=== PATIENT | female | born 1955 | race Caucasian/White ===

== ENCOUNTER 2018-06-01 01:25 | Outpatient (CLI) | payer MEDICARE, MEDICAID, SELFPAY ==
[2018-06-01 11:13] LABS: Abs Immature Grans 0.01 k/cumm (0.0-0.09); Absolute Basophil Count 0.04 k/cumm (0.0-0.2); Absolute Eosinophil Count 0.06 k/cumm (0.0-0.7); Absolute Lymphocyte Count 1.83 k/cumm (1.2-3.4); Absolute Monocyte Count 0.58 k/cumm (0.11-0.7); Absolute Neutrophil Count 3.32 k/cumm (1.2-6.7); Basophils % 0.7; HGB 12.5 g/dL (12.0-15.5); Immature Grans % 0.2; Lymphocytes % 31.3; Mean Corp. HGB Concentration 33.8 g/dL (32.0-36.0); Mean Corpuscular Hemoglobin 33.3 pg (27.0-33.0); Mean Corpuscular Volume 98.7 fL (80-95); Mean Platelet Volume 10.1 fL (8.0-11.0); Monocytes % 9.9; Neutrophils % 56.9; Platelet Count 147 x1000/uL (130-400); RBC 3.75 m/cumm (4.00-5.20); RBC Distribution Width 12.5 % (11.7-14.6); White Blood Cell Count 5.84 k/cumm (4.4-10.8)
[2018-06-01 11:20] LABS: INR 1.1 (1.0-3.5); Prothrombin Time 10.6 sec (9.3-10.8)
[2018-06-01 11:37] LABS: VALPROIC ACID 55.1 ug/mL (50-100)
[2018-06-01 11:38] LABS: Cholesterol 214 mg/dL (50-200); HDL Cholesterol 80 mg/dL (40-60); LDL CHOLESTEROL 115 mg/dL (<100); Triglyceride 88 mg/dL (30-150)
[2018-06-01 11:59] LABS: ALT 19 U/L (12-78); AST 13 U/L (15-37); Albumin 3.5 g/dL (3.4-5.0); Alkaline Phosphatase 71 U/L (46-116); Anion Gap 7.9 mmol/L (3-11); BUN 13 mg/dL (7-18); Bilirubin, Total 0.5 mg/dL (0.2-1.0); CO2 31.1 mmol/L (21.0-32.0); CREATININE 0.99 mg/dL (0.55-1.02); Calcium 9.3 mg/dL (8.5-10.1); Chloride 102 mmol/L (98-107); Estimated GFR 56.29 (mL/min/1.73m2); Glucose 151 mg/dL (70-100); Potassium 4.2 mmol/L (3.5-5.1); Sodium 141 mmol/L (136-145); TSH 1.11 uIU/mL (0.358-3.74); Total Protein 6.2 g/dL (6.4-8.2); Vitamin B12 1253 pg/mL (193-986)
[2018-06-01 12:00] LABS: Folate > 20.0 ng/mL (8.6-20.0)
== END 2018-06-01 01:45 ==
PROVIDERS: PCP Family Medicine; Visit Provider Psychiatry & Neurology Psychiatry
DX: Z79.899 Other long term (current) drug therapy (principal); Z51.81 Encounter for therapeutic drug level monitoring; F31.9 Bipolar disorder, unspecified; I48.91 Unspecified atrial fibrillation; Z79.01 Long term (current) use of anticoagulants; D75.89 Other specified diseases of blood and blood-forming organs; E03.9 Hypothyroidism, unspecified
CPT/HCPCS: 36415; 80053; 80061; 83721; 80164; 82607; 82746; 84443; 85025; 85610

== ENCOUNTER 2018-11-04 01:43 | Outpatient (CLI) | payer MEDICARE, MEDICAID, SELFPAY ==
[2018-11-04 10:57] LABS: Abs Immature Grans 0.02 k/cumm (0.0-0.09); Absolute Basophil Count 0.02 k/cumm (0.0-0.2); Absolute Lymphocyte Count 1.87 k/cumm (1.2-3.4); Absolute Neutrophil Count 2.35 k/cumm (1.2-6.7); Basophils % 0.4; Eosinophils % 2.1; HGB 12.7 g/dL (12.0-15.5); Immature Grans % 0.4; Lymphocytes % 38.5; Mean Corp. HGB Concentration 33.4 g/dL (32.0-36.0); Mean Corpuscular Hemoglobin 32.6 pg (27.0-33.0); Mean Corpuscular Volume 97.7 fL (80-95); Mean Platelet Volume 10.8 fL (8.0-11.0); Monocytes % 10.3; Neutrophils % 48.3; Platelet Count 162 x1000/uL (130-400); RBC 3.89 m/cumm (4.00-5.20); RBC Distribution Width 13.5 % (11.7-14.6); White Blood Cell Count 4.86 k/cumm (4.4-10.8)
[2018-11-04 11:20] LABS: ALT 20 U/L (12-78); AST 11 U/L (15-37); Albumin 3.5 g/dL (3.4-5.0); Alkaline Phosphatase 65 U/L (46-116); Anion Gap 6.4 mmol/L (3-11); BUN 27 mg/dL (7-18); Bilirubin, Total 0.5 mg/dL (0.2-1.0); CO2 30.6 mmol/L (21.0-32.0); CREATININE 0.69 mg/dL (0.55-1.02); Calcium 9.3 mg/dL (8.5-10.1); Chloride 104 mmol/L (98-107); Cholesterol 227 mg/dL (50-200); Glucose 90 mg/dL (70-100); HDL Cholesterol 82 mg/dL (40-60); LDL CHOLESTEROL 122 mg/dL (<100); Potassium 4.7 mmol/L (3.5-5.1); Sodium 141 mmol/L (136-145); Total Protein 6.5 g/dL (6.4-8.2); Triglyceride 39 mg/dL (30-150)
[2018-11-04 11:31] LABS: VALPROIC ACID 72.9 ug/mL (50-100)
[2018-11-04 11:42] LABS: Prothrombin Time 9.5 sec (9.3-11.0)
== END 2018-11-04 02:03 ==
PROVIDERS: PCP Family Medicine; Visit Provider Psychiatry & Neurology Psychiatry
DX: F25.9 Schizoaffective disorder, unspecified (principal); Z51.81 Encounter for therapeutic drug level monitoring; Z79.899 Other long term (current) drug therapy
CPT/HCPCS: 36415; 80053; 80061; 83721; 80164; 85025; 85610

== ENCOUNTER 2019-01-06 09:56 | Outpatient (CLI) | payer MEDICARE, MEDICAID, SELFPAY ==
[2019-01-06 13:17] LABS: ALT 21 U/L (12-78); AST 7 U/L (15-37); Albumin 3.6 g/dL (3.4-5.0); Alkaline Phosphatase 78 U/L (46-116); BUN 17 mg/dL (7-18); Bilirubin, Total 0.4 mg/dL (0.2-1.0); CREATININE 0.77 mg/dL (0.55-1.02); Calcium 9.8 mg/dL (8.5-10.1); Chloride 101 mmol/L (98-107); Glucose 83 mg/dL (70-100); Potassium 4.6 mmol/L (3.5-5.1); Sodium 140 mmol/L (136-145); TSH 0.53 uIU/mL (0.358-3.74); Total Protein 6.5 g/dL (6.4-8.2)
== END 2019-01-06 10:16 ==
PROVIDERS: PCP Family Medicine; Visit Provider Family Medicine
DX: E03.9 Hypothyroidism, unspecified (principal); K21.9 Gastro-esophageal reflux disease without esophagitis
CPT/HCPCS: 36415; 80053; 84443

== ENCOUNTER 2019-01-06 10:35 | Outpatient (REF) | payer MEDICARE, MEDICAID, SELFPAY ==
--- NOTE | 2019-01-06 10:30 | PAPFT_PTH ---
PATIENT: Lila Oliveros LOC: [facility] U#:[id number] AGE/SX: 63/F ROOM: RE01/06/[address]: Angela Levy MD : [id number] BED: DIS: 01/06/2019 SPEC #: [id number] RECD: 01/06/19 13:00 STATUS: LEIGH BURNETTE #: [id number] LILLY: 01/06/19 10:[address]: Angela Levy DEPT: [facility] Cytology RECD BY: Maricel Loco Tissues: 1 - CX/ENDOCX FOR PAP SMEARS Procedures: PAP THIN PREP/UVM Screening HPV DNA PROBE Comments: [id number]
== END 2019-01-06 10:55 ==
LOC: LBN 10:35
PROVIDERS: PCP Family Medicine; Visit Provider Family Medicine
DX: Z12.4 Encounter for screening for malignant neoplasm of cervix (principal); Z11.51 Encounter for screening for human papillomavirus (HPV)
CPT/HCPCS: 88142; 87624

== ENCOUNTER 2019-01-22 01:46 | Outpatient (CLI) | payer MEDICARE, MEDICAID, SELFPAY ==
--- NOTE | 2019-01-22 06:37 | DI.MAMMO_ITS ---
SYMPTOM/DIAGNOSIS: SCREENING, Z12.31 BILATERAL SCREENING MAMMOGRAM: Mammograms were interpreted according to the usual protocol including computer analysis with CAD system, tomosynthesis and C view imaging. Comparison is made with exams from 2014 through 2018. The breasts are composed of extremely dense fibroglandular tissue, breast density category D. No suspicious masses or suspicious microcalcifications are seen. There has been no significant change . IMPRESSION: : Category 1, negative mammogram. Yearly screening mammography is recommended. Breast density category D. SA ASSESSMENT OF FINDINGS: Negative. Category 1. Patient will receive a letter notifying them of these results. BI-RADS category D. The breasts are extremely dense, which lowers the sensitivity of mammography.
== END 2019-01-22 02:06 ==
PROVIDERS: Visit Provider Family Medicine
DX: Z12.31 Encounter for screening mammogram for malignant neoplasm of breast (principal)
CPT/HCPCS: 77063; 77067

== ENCOUNTER 2019-04-30 00:55 | Outpatient (CLI) | payer MEDICARE, BC, SELFPAY ==
[2019-04-30 11:02] LABS: Abs Immature Grans 0.01 k/cumm (0.0-0.09); Absolute Basophil Count 0.03 k/cumm (0.0-0.2); Absolute Eosinophil Count 0.11 k/cumm (0.0-0.7); Absolute Lymphocyte Count 1.76 k/cumm (1.2-3.4); Absolute Monocyte Count 0.47 k/cumm (0.11-0.7); Absolute Neutrophil Count 2.21 k/cumm (1.2-6.7); Basophils % 0.7; Eosinophils % 2.4; HCT 37.3 % (36.0-46.0); HGB 12.5 g/dL (12.0-15.5); Immature Grans % 0.2; Lymphocytes % 38.3; Mean Corp. HGB Concentration 33.5 g/dL (32.0-36.0); Mean Corpuscular Hemoglobin 32.4 pg (27.0-33.0); Mean Corpuscular Volume 96.6 fL (80-95); Mean Platelet Volume 10.5 fL (8.0-11.0); Monocytes % 10.2; Neutrophils % 48.2; Platelet Count 178 x1000/uL (130-400); RBC 3.86 m/cumm (4.00-5.20); RBC Distribution Width 13.3 % (11.7-14.6); White Blood Cell Count 4.59 k/cumm (4.4-10.8)
[2019-04-30 11:14] LABS: ALT 24 U/L (14-59); BUN 15 mg/dL (7-18); Bilirubin, Total 0.8 mg/dL (0.2-1.0); Glucose 84 mg/dL (70-100); Sodium 141 mmol/L (136-145)
[2019-04-30 11:16] LABS: AST 10 U/L (15-37); Albumin 3.6 g/dL (3.4-5.0); Alkaline Phosphatase 69 U/L (46-116); Anion Gap 8.8 mmol/L (3-11); CO2 29.2 mmol/L (21.0-32.0); CREATININE 0.82 mg/dL (0.55-1.02); Calcium 9.3 mg/dL (8.5-10.1); Chloride 103 mmol/L (98-107); Potassium 4.1 mmol/L (3.5-5.1); TSH 0.73 uIU/mL (0.36-3.74); Total Protein 6.8 g/dL (6.4-8.2)
[2019-04-30 11:38] LABS: VALPROIC ACID 71.5 ug/mL (50-100)
== END 2019-04-30 01:15 ==
PROVIDERS: Psychiatry & Neurology Psychiatry; PCP Family Medicine; Visit Provider Family Medicine
DX: F25.9 Schizoaffective disorder, unspecified (principal); Z79.899 Other long term (current) drug therapy
CPT/HCPCS: 36415; 80053; 80164; 84443; 85025

== ENCOUNTER 2019-12-01 02:56 | Outpatient (CLI) | payer MEDICARE, BC, SELFPAY ==
[2019-12-01 09:14] LABS: Abs Immature Grans 0.02 k/cumm (0.0-0.09); Absolute Basophil Count 0.04 k/cumm (0.0-0.2); Absolute Eosinophil Count 0.11 k/cumm (0.0-0.7); Absolute Lymphocyte Count 2.51 k/cumm (1.2-3.4); Absolute Monocyte Count 0.69 k/cumm (0.11-0.7); Absolute Neutrophil Count 2.87 k/cumm (1.2-6.7); Basophils % 0.6; Eosinophils % 1.8; HCT 38.7 % (36.0-46.0); Immature Grans % 0.3 %; Lymphocytes % 40.2; Mean Corp. HGB Concentration 33.6 g/dL (32.0-36.0); Mean Corpuscular Hemoglobin 32.3 pg (27.0-33.0); Mean Platelet Volume 9.7 fL (8.0-11.0); Monocytes % 11.1; Platelet Count 195 x1000/uL (130-400); RBC 4.03 m/cumm (4.00-5.20); White Blood Cell Count 6.24 k/cumm (4.4-10.8)
[2019-12-01 10:08] LABS: ALT 39 U/L (14-59); AST 22 U/L (15-37); Albumin 3.8 g/dL (3.4-5.0); Alkaline Phosphatase 87 U/L (46-116); Anion Gap 2.5 mmol/L (3-11); BUN 21 mg/dL (7-18); Bilirubin, Total 0.7 mg/dL (0.2-1.0); CO2 33.5 mmol/L (21.0-32.0); CREATININE 0.96 mg/dL (0.55-1.02); Calcium 9.3 mg/dL (8.5-10.1); Calculated LDL 126 mg/dL (<100); Chloride 102 mmol/L (98-107); Cholesterol 239 mg/dL (<200); Estimated GFR 58.15 (mL/min/1.73m2); Glucose 96 mg/dL (74-106); HDL Cholesterol 107 mg/dL (40-60); Potassium 4.6 mmol/L (3.5-5.1); Sodium 138 mmol/L (136-145); TSH 0.84 uIU/mL (0.36-3.74); Total Protein 6.9 g/dL (6.4-8.2); Triglyceride 34 mg/dL (<150)
== END 2019-12-01 03:16 ==
PROVIDERS: PCP Family Medicine; Visit Provider Psychiatry & Neurology Psychiatry
DX: F25.9 Schizoaffective disorder, unspecified (principal); E03.9 Hypothyroidism, unspecified; Z51.81 Encounter for therapeutic drug level monitoring; Z79.899 Other long term (current) drug therapy
CPT/HCPCS: 36415; 80053; 80061; 80164; 84443; 85025

== ENCOUNTER 2020-01-14 03:46 | Outpatient (CLI) | payer MEDICARE, BC, SELFPAY ==
--- NOTE | 2020-01-14 06:30 | DI.MAMMO_ITS ---
EXAM: MG MAMMO SCREENING CLINICAL HISTORY: screening,Z12.39 TECHNIQUE: Mammograms were interpreted according to the usual protocol including computer analysis w [employer] system, tomosynthesis and C-view imaging. COMPARISON: FINDINGS: The breasts are very dense. No dominant mass or clumped microcalcification identified in either [address]. Typical benign ductal calcifications are noted bilaterally. Examination is compared with previo us examinations including December 2018 and there has been no apparent interval change since the prior st udies. IMPRESSION: No specific evidence of malignancy at this time. Routine screening examinations are suggested yearly intervals in this age group according to the ACS ACR guidelines. BI-RADS Category 1 - Negative Breast Density - Category D - Extremely dense
== END 2020-01-14 04:06 ==
PROVIDERS: PCP Family Medicine; Visit Provider Family Medicine
DX: Z12.31 Encounter for screening mammogram for malignant neoplasm of breast (principal)
CPT/HCPCS: 77063; 77067

== ENCOUNTER → 2020-03-10 09:15 | Outpatient (BNVA) | payer MEDICARE, BC, SELFPAY | PROVIDERS: PCP Family Medicine; Referring Provider Family Medicine; Visit Provider Physical Therapy Assistant | DX: Z12.11 Encounter for screening for malignant neoplasm of colon (principal); Z80.0 Family history of malignant neoplasm of digestive organs ==

== ENCOUNTER 2020-06-16 02:14 | Outpatient (CLI) | payer MEDICARE, BC, SELFPAY ==
[2020-06-16 10:19] LABS: HCT 37.1 % (36.0-46.0); HGB 12.4 g/dL (11.2-15.7); MCH 32.2 pg (27.0-33.0); MCHC 33.4 % (32.0-36.0); MCV 96.4 fL (80-95); Platelet Count 184 10^3/uL (130-400); RBC 3.85 10^6/uL (3.93-5.22); RDW 12.7 % (11.7-14.6); RDW-SD 45.2 fL; WBC 6.29 10^3/uL (4.4-10.8)
[2020-06-16 10:28] LABS: VALPROIC ACID 56.7 ug/mL (50-100)
[2020-06-16 10:42] LABS: ALT 24 U/L (14-59); AST 14 U/L (15-37); Albumin 3.6 g/dL (3.4-5.0); Alkaline Phosphatase 82 U/L (46-116); Anion Gap 4.6 mmol/L (3-11); BUN 18 mg/dL (7-18); Bilirubin, Direct 0.15 mg/dL (0.00-0.20); Bilirubin, Total 0.6 mg/dL (0.2-1.0); CO2 31.4 mmol/L (21.0-32.0); CREATININE 0.91 mg/dL (0.55-1.02); Calcium 9.2 mg/dL (8.5-10.1); Chloride 103 mmol/L (98-107); Glucose 115 mg/dL (74-106); Potassium 4.1 mmol/L (3.5-5.1); Sodium 139 mmol/L (136-145); Total Protein 6.4 g/dL (6.4-8.2)
== END 2020-06-16 02:34 ==
PROVIDERS: PCP Family Medicine; Visit Provider Psychiatry & Neurology Psychiatry
DX: F31.9 Bipolar disorder, unspecified (principal); Z79.899 Other long term (current) drug therapy; Z51.81 Encounter for therapeutic drug level monitoring
CPT/HCPCS: 36415; 80048; 80076; 85027; 80164

== ENCOUNTER 2020-12-22 02:38 | Outpatient (CLI) | payer MEDICARE, BC, SELFPAY ==
[2020-12-22 08:25] LABS: Abs Immature Grans 0.03 10^3/uL (0.0-0.06); Absolute Basophil Count 0.06 10^3/uL (0.0-0.2); Absolute Eosinophil Count 0.09 10^3/uL (0.0-0.7); Absolute Neutrophil Count 3.44 10^3/uL (1.2-6.7); Basophils % 0.9; Eosinophils % 1.4; HCT 38.5 % (36.0-46.0); HGB 12.8 g/dL (11.2-15.7); Immature Grans % 0.5; Lymphocytes % 33.7; MCH 31.8 pg (27.0-33.0); MCHC 33.2 % (32.0-36.0); MCV 95.8 fL (80-95); MPV 9.6 fL (8.0-11.0); Monocytes % 10.7; Neutrophils % 52.8; Nucleated RBC 0 %; Platelet Count 170 10^3/uL (130-400); RBC 4.02 10^6/uL (3.93-5.22); RDW 13.2 % (11.7-14.6); RDW-SD 47.2 fL; WBC 6.52 10^3/uL (4.4-10.8)
[2020-12-22 08:34] LABS: Prothrombin Time 10.3 sec (9.3-11.0)
[2020-12-22 08:39] LABS: VALPROIC ACID 62.5 ug/mL (50-100)
[2020-12-22 09:54] LABS: ALT 27 U/L (14-59); AST 15 U/L (15-37); Albumin 3.6 g/dL (3.4-5.0); Alkaline Phosphatase 78 U/L (46-116); Anion Gap 6.2 mmol/L (3-11); BUN 18 mg/dL (7-18); Bilirubin, Total 0.7 mg/dL (0.2-1.0); CO2 31.8 mmol/L (21.0-32.0); CREATININE 0.8 mg/dL (0.55-1.02); Calcium 9.1 mg/dL (8.5-10.1); Calculated LDL 108 mg/dL (<100); Chloride 104 mmol/L (98-107); Cholesterol 207 mg/dL (<200); Glucose 93 mg/dL (74-106); HDL Cholesterol 93 mg/dL (40-60); Potassium 4.8 mmol/L (3.5-5.1); Sodium 142 mmol/L (136-145); Total Protein 6.5 g/dL (6.4-8.2); Triglyceride 32 mg/dL (<150)
== END 2020-12-22 02:39 | disposition home or self-care (01) ==
LOC: LBO 02:38
PROVIDERS: PCP Family Medicine; Visit Provider Psychiatry & Neurology Psychiatry
DX: R73.09 Other abnormal glucose (principal); Z79.899 Other long term (current) drug therapy; F31.9 Bipolar disorder, unspecified
CPT/HCPCS: 36415; 80053; 80061; 80164; 85025; 85610

== ENCOUNTER 2021-03-09 03:58 | Outpatient (CLI) | payer MEDICARE, BC, SELFPAY ==
--- NOTE | 2021-03-09 07:44 | DI.MAMMO_ITS ---
Exam(s) MAMMO SCREENING EXAM: MAMMO SCREENING CLINICAL HISTORY: screening, Z12.39. TECHNIQUE: Bilateral full field digital CC and MLO mammographic images were obtained with 3D tomosyn thesis and utilizing computer aided detection (CAD). COMPARISON: 2011 through 2019 FINDINGS: Masses/Architectural Distortion: None seen. Microcalcifications: No suspicious pleomorphic-type are seen. Skin Thickening/Nipple Retraction: None. IMPRESSION: 1. No significant interval change with no specific features of malignancy noted. 2. Unless there is more urgent need, annual screening mammography is recommended, as per [place] [employer] guidelines. BI-RADS Category 1-negative Breast Density - Category D - extremely dense Breast Density Category D: The mammogram demonstrates the patient's breast tissue is dense. Dense [place] ast tissue is very common and is not abnormal but dense breast tissue can make it harder to find canc er on a mammogram. Also, dense breast tissue may increase their breast cancer risk. This information about the result of the mammogram report was provided to the patient to raise their awareness. Use th is report when you speak with the patient about their risks for breast cancer, which includes their f amily history. At that time, you may recommend for more screening tests (Ultrasound or MRI) as they m ight be useful based on their risk. A negative radiographic report should not delay biopsy if a dominant or clinically suspicious mass is present. Up to ten percent of cancers are not identified on mammography. A negative report may reinforce clinical impression. Adenosis and dense breasts may obscure an underlying neoplasm. False positive reports average 6 to 10%.
== END 2021-03-09 04:18 ==
PROVIDERS: PCP Family Medicine; Visit Provider Family Medicine
DX: Z12.31 Encounter for screening mammogram for malignant neoplasm of breast (principal)
CPT/HCPCS: 77063; 77067

== ENCOUNTER 2021-06-01 04:08 | Outpatient (CLI) | payer MEDICARE, BC, SELFPAY ==
[2021-06-01 12:49] LABS: Abs Immature Grans 0.03 10^3/uL (0.0-0.06); Absolute Basophil Count 0.05 10^3/uL (0.0-0.2); Absolute Eosinophil Count 0.26 10^3/uL (0.0-0.7); Absolute Lymphocyte Count 2.29 10^3/uL (1.2-3.4); Absolute Monocyte Count 0.67 10^3/uL (0.1-0.8); Absolute Neutrophil Count 2.25 10^3/uL (1.2-6.7); Basophils % 0.9; Eosinophils % 4.7; HCT 36.9 % (36.0-46.0); Immature Grans % 0.5; Lymphocytes % 41.3; MCH 31.6 pg (27.0-33.0); MCHC 32.5 % (32.0-36.0); MCV 97.1 fL (80-95); MPV 10.4 fL (8.0-11.0); Monocytes % 12.1; Neutrophils % 40.5; Nucleated RBC 0 %; Platelet Count 162 10^3/uL (130-400); RDW 13.6 % (11.7-14.6); RDW-SD 48.6 fL; WBC 5.55 10^3/uL (4.4-10.8)
[2021-06-01 13:01] LABS: ALT 25 U/L (14-59); AST 14 U/L (15-37); Albumin 3.5 g/dL (3.4-5.0); Alkaline Phosphatase 66 U/L (46-116); Anion Gap 5.2 mmol/L (3-11); BUN 17 mg/dL (7-18); Bilirubin, Total 0.7 mg/dL (0.2-1.0); CO2 30.8 mmol/L (21.0-32.0); CREATININE 0.7 mg/dL (0.55-1.02); Calcium 8.8 mg/dL (8.5-10.1); Chloride 104 mmol/L (98-107); Glucose 89 mg/dL (74-106); Potassium 4.4 mmol/L (3.5-5.1); Sodium 140 mmol/L (136-145); Total Protein 6.3 g/dL (6.4-8.2)
[2021-06-01 13:12] LABS: TSH (W/Ref FT4) 0.62 uIU/mL (0.36-3.74)
[2021-06-01 13:13] LABS: VALPROIC ACID 55.4 ug/mL
[2021-06-04 00:27] LABS: Vitamin D 25 Total 73.6 ng/mL (30-100)
== END 2021-06-01 04:09 | disposition home or self-care (01) ==
LOC: LOS 04:08
PROVIDERS: Psychiatry & Neurology Psychiatry; PCP Family Medicine; Visit Provider Family Medicine
DX: Z79.899 Other long term (current) drug therapy
CPT/HCPCS: 36415; 80053; 82306; 80164; 84443; 85025

== ENCOUNTER 2021-08-15 16:25 | Outpatient (REF) | payer MEDICARE, BC, SELFPAY ==
[2021-08-17 13:23] LABS: COVID-19 RT-PCR UVMMC Result Negative (Negative)
== END 2021-08-15 16:26 | disposition home or self-care (01) ==
LOC: LBN 16:25
PROVIDERS: PCP Family Medicine; Visit Provider Family Medicine
DX: J02.9 Acute pharyngitis, unspecified (principal); Z20.822 Contact with and (suspected) exposure to COVID-19
CPT/HCPCS: U0003

== ENCOUNTER 2021-11-30 01:08 | Outpatient (CLI) | payer MEDICARE, BC, SELFPAY ==
[2021-11-30 12:56] LABS: Abs Immature Grans 0.03 10^3/uL (0.0-0.06); Absolute Basophil Count 0.06 10^3/uL (0.0-0.2); Absolute Lymphocyte Count 2.18 10^3/uL (1.2-3.4); Absolute Monocyte Count 0.71 10^3/uL (0.1-0.8); Absolute Neutrophil Count 2.79 10^3/uL (1.2-6.7); HCT 37.8 % (36.0-46.0); HGB 12.4 g/dL (11.2-15.7); Immature Grans % 0.5; Lymphocytes % 34.8; MCH 32.4 pg (27.0-33.0); MCHC 32.8 % (32.0-36.0); MCV 99 fL (80-95); MPV 10.3 fL (8.0-11.0); Monocytes % 11.3; Neutrophils % 44.4; Platelet Count 169 10^3/uL (130-400); RBC 3.83 10^6/uL (3.93-5.22); RDW 13.2 % (11.7-14.6); RDW-SD 47.9 fL; WBC 6.27 10^3/uL (4.4-10.8)
[2021-11-30 13:23] LABS: VALPROIC ACID 87.8 ug/mL
[2021-11-30 13:28] LABS: ALT 23 U/L (14-59); AST 6 U/L (15-37); Albumin 3.6 g/dL (3.4-5.0); Alkaline Phosphatase 86 U/L (46-116); Anion Gap 8.8 mmol/L (3-11); BUN 21 mg/dL (7-18); Bilirubin, Direct 0.1 mg/dL (0.0-0.2); Bilirubin, Total 0.4 mg/dL (0.2-1.0); CO2 28.2 mmol/L (21.0-32.0); CREATININE 0.9 mg/dL (0.55-1.02); Calcium 8.7 mg/dL (8.5-10.1); Calculated LDL 113 mg/dL (<100); Chloride 104 mmol/L (98-107); Cholesterol 217 mg/dL (<200); Glucose 83 mg/dL (74-106); HDL Cholesterol 95 mg/dL (40-60); Potassium 4.6 mmol/L (3.5-5.1); Sodium 141 mmol/L (136-145); Total Protein 6.5 g/dL (6.4-8.2); Triglyceride 48 mg/dL (<150)
== END 2021-11-30 01:09 | disposition home or self-care (01) ==
PROVIDERS: PCP Family Medicine; Visit Provider Psychiatry & Neurology Psychiatry
DX: F31.89 Other bipolar disorder (principal); Z51.81 Encounter for therapeutic drug level monitoring; Z79.899 Other long term (current) drug therapy
CPT/HCPCS: 36415; 80048; 80061; 80076; 80164; 85025

== ENCOUNTER 2022-01-12 12:44 | Emergency (ER) | payer MEDICARE, BC, SELFPAY ==
[2022-01-12 12:47] VITALS: BP 161/86; PULSE 84; RESP 20; TEMP 36; O2SAT 97
--- NOTE | 2022-01-12 13:10 | ED.GENADUL_ITS ---
Discharge Plan Disposition Patient Disposition: HOME Condition: Stable Discharge Details Clinical Impression: Corneal abrasion, left Primary Care Provider: Danish [place] ED Provider: Rosi Montoya Home Meds and New Rx's Prescriptions: Continued ascorbic acid (vitamin C) 1,000 mg tablet extended release 1,000 mg PO DAILY vitamin E 200 unit capsule 200 unit PO DAILY docusate sodium [Colace] 100 MG capsule 100 mg PO DAILY Qty: 90 cholecalciferol (vitamin D3) 1,000 UNIT tablet 1 tab PO DAILY glucosam-chond vb-mkrgnc-bs ac 1 EACH capsule 1 ea PO DAILY divalproex [Depakote] 500 MG tablet,delayed release (DR/EC) 1,000 mg PO HS Qty: 180 4RF risperidone 3 mg tablet 6 mg PO HS Qty: 180 3RF levothyroxine [Synthroid] 112 mcg tablet 112 mcg PO DAILY Qty: 90 3RF Discharge Instructions Instructions: Corneal Abrasion (ED) Additional Instructions: Your exam appears consistent with a possible corneal abrasion which is a scratch of the clear covering of the front your eye. Apply a half-inch ribbon of the erythromycin ointment to your left eye 4 times daily for the next 5-7 days. Follow-up with [facility] for reevaluation in the next 1 to 2 weeks. Return immediately to the emergency department if you develop any worsening or new concerning symptoms. Discharge Data Discharge Date/Time-TO BE ENTERED AT DEPARTURE: 01/12/22 13:50 Discharge Physician: Rosi Montoya Medical Decision Making 66-year-old female with a history of schizophrenia, bipolar disorder and hypertension presents with concern for burn to her left thigh after spilling hot coffee in her eye 1 hour prior to arrival. She admits to some blurry vision. OD 20/80, OS 20/40. External eye appears normal to inspection without cellulitis, rash, lesions or burn. PERRLA. EOMI. Tetanus up-to-date. Fluorescein staining in the left eye revealed a corneal abrasion at approximately 3:00. No obvious foreign body noted with inspection including eyelid eversion. She was given erythromycin ointment to go. She was advised to follow-up with [facility] for reevaluation. Usual and customary return precautions given prior to discharge. Medical Records Medical records reviewed: Yes I reviewed the patient's medical records. HPI General Mode of arrival: ambulatory . Date/Time Provider Initiated Documentation: 01/12/22 12:45 . Limitations to Documentation: no limitations . Information obtained by: patient . HPI Narrative: Patient is a 66-year-old female with a history of schizophrenia, bipolar disorder, migraines, hypothyroidism and hypertension presents with concern for burn to her left eye after she spilled hot coffee and it hit her left eye 1 hour prior to arrival. Patient admits to blurry vision bilaterally. She denies any injury to her right eye. She states her tetanus is up-to-date. Related Data Home Medications Medication Instructions Recorded Confirmed cholecalciferol (vitamin D3) 25 1 tab PO DAILY 11/10/12 01/12/22 mcg (1,000 unit) tablet docusate sodium 100 mg capsule 100 mg PO DAILY #90 tab-caps 11/10/12 01/12/22 (Colace) ydmazzyqgm-ugssdhbupv-tuozdnza-hyalur 1 ea PO DAILY 11/10/12 01/12/22 ac 375 mg-300 mg-175 mg-2 mg cap divalproex 500 mg tablet,delayed 1,000 mg PO HS #180 tab-caps 12/11/17 01/12/22 release (Depakote) ascorbic acid (vitamin C) 1,000 mg 1,000 mg PO DAILY 01/06/19 01/12/22 tablet,extended release vitamin E 200 unit capsule 200 unit PO DAILY 01/06/19 01/12/22 levothyroxine 112 mcg tablet 112 mcg PO DAILY #90 tab-caps 09/26/21 01/12/22 (Synthroid) risperidone 3 mg tablet 6 mg PO HS #180 tab-caps 09/26/21 01/12/22 Previous Rx's Medication Instructions Recorded divalproex 500 mg tablet,delayed 1,000 mg PO HS #180 tab-caps 12/11/17 release (Depakote) levothyroxine 112 mcg tablet 112 mcg PO DAILY #90 tab-caps 09/26/21 (Synthroid) risperidone 3 mg tablet 6 mg PO HS #180 tab-caps 09/26/21 Allergies Allergy/AdvReac Type Severity Reaction Status Date / Time aspirin Allergy Unknown CAUSED EYE Verified 01/12/22 12:49 TO KATHY benzonatate Allergy Skin Rash Verified 01/12/22 12:49 [From Chayo Timmons] Sulfa (Sulfonamide AdvReac Unknown Verified 01/12/22 12:49 Antibiotics) General Stated Complaint: EyeProblem ARCHIE: 4 PFSH All Active Problems (Updated 01/12/22 @ 13:41 by Rosi Montoya DO) Corneal abrasion, left (Acute) Elevated blood pressure reading (Acute) Osteopenia (Acute 05/22/15) bone density scan 2014 Migraine (Acute) Hypothyroidism (Acute 10/28/11) Bipolar I disorder (Acute) Anemia (Acute) Family history of GI malignancy (Acute) sister of colon cancer Schizophrenia (Acute) Medical History (Updated 01/12/22 @ 13:41 by Rosi Montoya DO) Gastroesophageal reflux disease Family History (Updated 01/26/20 @ 10:59 by Evon Saldaña) Mother , 92 Essential hypertension Heart disease Hyperlipidemia Father , 60 Prostate cancer Sister , 60 No problems noted. Sister , 60 Colon cancer Brother Essential hypertension Brother No problems noted. Maternal Grandfather , 72 Heart disease Cancer Paternal Grandfather , 60 Heart disease Cancer Maternal Grandmother , 86 Heart disease Colon cancer Paternal Grandmother , 84 Heart disease Cancer FAMILY HISTORY Neoplasm CERVICAL Sister No problems noted. Sister No problems noted. Sister No problems noted. Social History (Updated 02/05/21 @ 14:36 by Sharee Camarena) Smoking/Tobacco Use Status: Never Smoking risk assessment performed?: Yes Alcohol Intake: never Drug use: Never Substance use type: does not use Caregiver/Support person: No Household members: none Housing: house Communication Needs: None Do you need help understanding health information?: Never Pets and animals: Yes Pets and animals: dog(s) Sexually active: No Do you think of yourself as: straight/heterosexual Current gender identity: female What is your relationship status?: How often do you talk on the phone with friends or family?: three or more times per week How often do you get together with friends or relatives?: three or more times per week How often do you attend methodist or adventism services?: 4 or more times per year Do you belong to any clubs or organized social groups?: yes Panel score (0-1 are the most socially isolated patients): 3 What type of physical activity do you participate in: walking, bicycling and running Duration: 30-45 minutes/day Frequency: 5-6 times per week Katelin/Church: [employer] Special katelin needs: No Seatbelt use: always Drive intox or ride w/intox automobile drivers: No Do you feel safe at home: Yes Do you feel safe in your relationship?: Yes Exam Const General: cooperative, healthy appearing and no acute distress Orientation: alert, awake and oriented x3 HENMT Head: normal to inspection Ears: hearing grossly normal bilaterally and external ears normal General nose exam: external nose normal Face and sinus: normal facial exam Mouth: oral mucosae normal Eyes General: appearance normal, both eyes and all related structures Periorbital: periorbital findings normal Eyelids: eyelids normal Pupils: PERRL EOM: EOM intact bilaterally Other: No obvious foreign body noted with inspection including eyelid eversion. Eyes/upper lids images: 1. Fluorescein uptake Neck Neck: normal visual inspection Resp Effort & Inspection: normal respiratory effort and able to speak in complete sentences Cardio Rate: regular rate Skin General skin exam: no rashes or lesions noted Neuro General: patient alert, patient awake and patient oriented x3 Motor: muscle tone normal throughout Extrem General: normal to inspection and full ROM Psych Appearance: grossly normal Affect: normal affect Course Vital Signs Vital signs: Vital Signs Temperature 96.8 F L 01/12/22 12:47 Pulse 84 01/12/22 12:47 Respiratory Rate 01/12/22 12:47 Blood Pressure 161/86 H 01/12/22 12:47 Pulse Oximetry 97 01/12/22 12:47 Temperature 96.8 F L 01/12/22 12:47 Temperature Source Temporal Artery Scan 01/12/22 12:47 Pulse 84 01/12/22 12:47 Respiratory Rate 20 01/12/22 12:47 Respiratory Effort 01/12/22 12:50 Blood Pressure 161/86 H 01/12/22 12:47 Blood Pressure Position Supine 01/12/22 12:47 Pulse Oximetry 97 01/12/22 12:47 Oxygen Delivery Method Room Air 01/12/22 12:47 Oxygen Flow Rate 0 01/12/22 12:47 Pain Level 5 01/12/22 12:47
[2022-01-12] MEDS: Fluorescein STRIPS 100/BOX 1 MG (13:13)
[2022-01-12] MEDS: Tetracaine 0.5% 4 ML BTL (13:48)
== END 2022-01-12 13:50 | disposition home or self-care (01) ==
PROVIDERS: Emergency Provider Physician Assistant; PCP Family Medicine
DX: S05.02XA Injury of conjunctiva and corneal abrasion without foreign body, left eye, initial encounter (principal); X58.XXXA Exposure to other specified factors, initial encounter
CPT/HCPCS: 99283

== ENCOUNTER 2022-07-10 10:39 | Outpatient (CLI) | payer MEDICARE, BC, SELFPAY ==
[2022-07-10 13:23] LABS: TSH (W/Ref FT4) 0.53 uIU/mL (0.36-3.74)
== END 2022-07-10 10:40 | disposition home or self-care (01) ==
LOC: LOS 10:40
PROVIDERS: PCP Family Medicine; Visit Provider Family Medicine
DX: E03.9 Hypothyroidism, unspecified (principal)
CPT/HCPCS: 36415; 84443

== ENCOUNTER 2022-12-20 01:12 | Outpatient (CLI) | payer MEDICARE, BC, SELFPAY ==
[2022-12-20 12:49] LABS: HCT 37.7 % (36.0-46.0); HGB 12.7 g/dL (11.2-15.7); MCH 32.7 pg (27.0-33.0); MCHC 33.7 % (32.0-36.0); MCV 97 fL (80-95); MPV 9.6 fL (8.0-11.0); Platelet Count 176 10^3/uL (130-400); RBC 3.88 10^6/uL (3.93-5.22); RDW 12.8 % (11.7-14.6); RDW-SD 45.8 fL; WBC 7.29 10^3/uL (4.4-10.8)
[2022-12-20 13:11] LABS: ALT 21 U/L (14-59); AST 11 U/L (15-37); Albumin 3.4 g/dL (3.4-5.0); Alkaline Phosphatase 78 U/L (46-116); Bilirubin, Direct 0.1 mg/dL (0.0-0.2); Bilirubin, Total 0.5 mg/dL (0.2-1.0); TSH (W/Ref FT4) 1.18 uIU/mL (0.36-3.74); Total Protein 6.7 g/dL (6.4-8.2)
[2022-12-20 13:16] LABS: VALPROIC ACID 59.2 ug/mL
== END 2022-12-20 01:13 | disposition home or self-care (01) ==
LOC: LOS 01:13
PROVIDERS: PCP Family Medicine; Visit Provider Family Medicine
DX: E03.9 Hypothyroidism, unspecified (principal); R53.83 Other fatigue; F31.9 Bipolar disorder, unspecified; G72.89 Other specified myopathies; Z51.81 Encounter for therapeutic drug level monitoring; Z79.899 Other long term (current) drug therapy
CPT/HCPCS: 36415; 80076; 85027; 80164; 84443

== ENCOUNTER → 2023-04-16 03:08 | Outpatient (CLI) | payer MEDICARE, BC, SELFPAY ==
--- NOTE | 2023-04-16 06:15 | DI.MAMMO_ITS ---
Exam(s) MAMMO SCREENING EXAM: MAMMO SCREENING CLINICAL HISTORY: screening,z12.39 TECHNIQUE: Bilateral full field digital CC and MLO mammographic images were obtained with 3D tomosyn thesis and utilizing computer aided detection (CAD). COMPARISON: Available for comparison. FINDINGS: Masses/Architectural Distortion: None seen. Microcalcifications: No suspicious pleomorphic-type are seen. Skin Thickening/Nipple Retraction: None. IMPRESSION: 1. No significant interval change with no specific features of malignancy noted. 2. Unless there is more urgent need, screening mammography is recommended, as per [place] [employer] guidelines. BI-RADS Category 1 - Negative Breast Density - Category D - Extremely dense Breast density category C or D implies that the patient has dense breast tissue. Dense breast tissue is very common and is not abnormal but dense breast tissue can make it harder to find cancer on a ma mmogram. Also, dense breast tissue may increase their breast cancer risk. This information about the result of the mammogram report was provided to the patient to raise their awareness. Use this report when you speak with the patient about their risks for breast cancer, which includes their family hist ory. At that time, you may recommend for more screening tests (Ultrasound or MRI) as they might be us eful based on their risk. A negative radiographic report should not delay biopsy if a dominant or clinically suspicious mass is present. Up to ten percent of cancers are not identified on mammography. A negative report may reinforce clinical impression. Adenosis and dense breasts may obscure an underlying neoplasm. False positive reports average 6 to 10%. Patient will receive a letter notifying them of these results.
== END ==
PROVIDERS: PCP Family Medicine; Visit Provider Family Medicine
DX: Z12.31 Encounter for screening mammogram for malignant neoplasm of breast (principal); R92.343 Mammographic extreme density, bilateral breasts
CPT/HCPCS: 77063; 77067

== ENCOUNTER 2024-04-09 02:02 | Outpatient (CLI) | payer MEDICARE, BC, SELFPAY ==
[2024-04-09 12:26] LABS: HCT 37.3 % (36.0-46.0); HGB 12.4 g/dL (11.2-15.7); MCH 32.5 pg (27.0-33.0); MCHC 33.2 % (32.0-36.0); MCV 98 fL (80-95); MPV 10.2 fL (8.0-11.0); Platelet Count 191 10^3/uL (130-400); RBC 3.82 10^6/uL (3.93-5.22); RDW 13.9 % (11.7-14.6); RDW-SD 49.4 fL; WBC 6.72 10^3/uL (4.4-10.8)
[2024-04-09 12:39] LABS: Hemoglobin A1C 5.7 % (<5.7)
[2024-04-09 12:49] LABS: VALPROIC ACID 68.6 ug/mL
[2024-04-09 12:50] LABS: ALT 19 U/L (14-59); AST 12 U/L (15-37); Albumin 3.4 g/dL (3.4-5.0); Alkaline Phosphatase 80 U/L (46-116); Anion Gap 7.3 mmol/L (3-11); BUN 22 mg/dL (7-18); Bilirubin, Total 0.42 mg/dL (0.2-1.0); CO2 29.7 mmol/L (21.0-32.0); CREATININE 0.8 mg/dL (0.55-1.02); Calcium 9.2 mg/dL (8.5-10.1); Calculated LDL 133 mg/dL (<100); Chloride 106 mmol/L (98-107); Cholesterol 232 mg/dL (<200); Estimated GFR 78.72 (mL/min/1.73m2); Glucose 80 mg/dL (74-106); HDL Cholesterol 88 mg/dL (40-60); Potassium 4.2 mmol/L (3.5-5.1); Sodium 143 mmol/L (136-145); TSH (W/Ref FT4) 1.06 uIU/mL (0.36-3.74); Total Protein 6.7 g/dL (6.4-8.2); Triglyceride 56 mg/dL (<150)
== END 2024-04-09 02:03 | disposition home or self-care (01) ==
LOC: LOS 02:02
PROVIDERS: PCP Nurse Practitioner Family; Visit Provider Nurse Practitioner Family
DX: Z13.6 Encounter for screening for cardiovascular disorders (principal); E03.9 Hypothyroidism, unspecified; Z79.899 Other long term (current) drug therapy; Z13.1 Encounter for screening for diabetes mellitus; I10 Essential (primary) hypertension; F20.9 Schizophrenia, unspecified
CPT/HCPCS: 36415; 80053; 80061; 85027; 80164; 83036; 84443

== ENCOUNTER 2025-03-12 04:56 | Emergency (ER) | payer MEDICARE, BC, SELFPAY ==
[2025-03-12] VITALS (12 sets, daily range): BP systolic 177–208; BP diastolic 75–100; PULSE 71–87; RESP 13–24; TEMP 36.2; O2SAT 96–99
--- NOTE | 2025-03-12 05:00 | RT.EKG_ITS ---
APPROVED REPORT Exam: Resting ECG Reason for Exam: faint dizzy Patient Location: E HR:81 bpm ECG Measurements Heart Rate 81 AXIS WI 148 P 26 QRSd 82 QRS -13 QT 363 T 10 QTc 421 Conclusion Sinus rhythm...normal P axis, V-rate 60- 99 Inferior infarct, old...Q >35mS, II III aVF Consider anterior infarct...Q >30mS in V2-V5 no ST segment or T wave abnormalities to suggest occlusive AK
--- NOTE | 2025-03-12 05:21 | W.ED.GENAD ---
Discharge Plan Disposition Patient Disposition: Against Medical Advice Condition: Serious Discharge Details Clinical Impression: Vertigo Primary Care Provider: Trevon King ED Provider: Felipa Chilel Home Meds and New Rx's Prescriptions: New clopidogrel [Plavix] 75 mg tablet 75 mg PO DAILY Qty: 14 0RF meclizine 25 mg tablet 25 mg PO BID PRNQty: 14 0RF Continued ascorbic acid (vitamin C) 1,000 mg tablet extended release 1,000 mg PO DAILY vitamin E 200 unit capsule 200 unit PO DAILY collagen 1 cap PO Azo Cranberry 250 mg tablet,chewable 250 mg PO DAILY omega 7-bbf-ciw-fish oil [Fish Oil] 300-1,000 mg capsule 1 cap PO DAILY ferrous sulfate 325 mg (65 mg iron) tablet 325 mg PO DAILY levothyroxine [Synthroid] 112 mcg tablet 112 mcg PO DAILY Qty: 90 3RF docusate sodium [Colace] 100 MG capsule 100 mg PO DAILY Qty: 90 cholecalciferol (vitamin D3) 1,000 UNIT tablet 1 tab PO DAILY glucosam-chond xt-onlwor-fz ac 1 EACH capsule 1 ea PO DAILY risperidone 3 mg tablet 6 mg PO HS Qty: 180 3RF divalproex [Depakote] 500 mg tablet,delayed release (DR/EC) 1,000 mg PO HS Qty: 180 4RF Discontinued lisinopril 10 mg tablet 10 mg PO DAILY Qty: 90 3RF Discharge Instructions Instructions: Clopidogrel, Vertigo ED Additional Instructions: You may be having a stroke. You are leaving against medical advice. Strokes can cause permanent disability and . Take your blood pressure medications as prescribed. Your blood pressure is very high here in the ED. Start taking clopidogrel 75mg once a day. This is a blood thinner that helps with strokes. It increases your risk of bleeding, especially if you fall or have a head injury. This can be fatal. Meclizine twice a day if needed for vertigo. Please call your primary care doctor to schedule an appointment to be seen as soon as possible, no later than Friday, to followup on your visit here. Please return to the emergency department when you are able to find someone to care for your dogs, if you change your mid about leaving, or if your symptoms worsen or you develop new symptoms. We would be relieved to see you again. Discharge Data Discharge Date/Time-TO BE ENTERED AT DEPARTURE: 09/13/25 08:14 HPI General Mode of arrival: ambulatory. Date/Time Provider Initiated Documentation: 03/12/25 04:56. Limitations to Documentation: no limitations. Information obtained by: patient. HPI Narrative: 70yo F with HTN, hypothyroid, schizophrenia, presenting with acute vertigo. Symptoms started suddenly at [id number] this morning, felt like she was falling over and the room was spinning. Has been coming and going, worse with some head movements particularly when she looks down. She states that even when the vertigo is not active she doesn't feel right, something is off. Mild nausea, no vomiting. Has never had anything like this before. No recent falls, head injuries, or illnesss. No presyncope, chest pain, shortness of breath, headache, neck pain, numbness, weakness, vision changes, auditory changes, tinnitus, or other concerns. Related Data Home Medications ?Medication ?Instructions ?Recorded ?Confirmed cholecalciferol (vitamin D3) 25 1 tab PO DAILY 11/10/12 03/12/25 mcg (1,000 unit) tablet docusate sodium 100 mg capsule 100 mg PO DAILY #90 tab-caps 11/10/12 03/12/25 (Colace) brkntyiqeg-lkhgrvmpty-lonbcrwz-hyalur 1 ea PO DAILY 11/10/12 03/12/25 ac 375 mg-300 mg-175 mg-2 mg cap ascorbic acid (vitamin C) 1,000 mg 1,000 mg PO DAILY 01/06/19 03/12/25 tablet,extended release vitamin E 200 unit capsule 200 unit PO DAILY 01/06/19 03/12/25 collagen 1 cap PO 05/15/22 08/13/24 cranberry fruit concentrate 250 mg 250 mg PO DAILY 05/15/22 03/12/25 chewable tablet (Azo Cranberry) ferrous sulfate 325 mg (65 mg 325 mg PO DAILY 05/15/22 03/12/25 iron) tablet omega 8-jho-lou-fish oil 300 1 cap PO DAILY 05/15/22 03/12/25 mg-1,000 mg capsule (Fish Oil) levothyroxine 112 mcg tablet 112 mcg PO DAILY #90 tab-caps 04/07/24 03/12/25 (Synthroid) divalproex 500 mg tablet,delayed 1,000 mg (2 x 500 mg) PO HS #180 08/09/24 03/12/25 release (Depakote) tab-caps risperidone 3 mg tablet 6 mg (2 x 3 mg) PO HS #180 tab-caps 08/09/24 03/12/25 clopidogrel 75 mg tablet (Plavix) 75 mg PO DAILY #14 tabs 03/12/25 meclizine 25 mg tablet 25 mg PO BID PRN #14 tabs 03/12/25 Previous Rx's ?Medication ?Instructions ?Recorded levothyroxine 112 mcg tablet 112 mcg PO DAILY #90 tab-caps 04/07/24 (Synthroid) divalproex 500 mg tablet,delayed 1,000 mg (2 x 500 mg) PO HS #180 08/09/24 release (Depakote) tab-caps risperidone 3 mg tablet 6 mg (2 x 3 mg) PO HS #180 tab-caps 08/09/24 clopidogrel 75 mg tablet (Plavix) 75 mg PO DAILY #14 tabs 03/12/25 meclizine 25 mg tablet 25 mg PO BID PRN #14 tabs 03/12/25 Allergies Allergy/AdvReac Type Severity Reaction Status Date / Time aspirin Allergy Unknown CAUSED EYE Verified 03/12/25 05:11 TO KATHY benzonatate (From Tessalon Allergy Skin Rash Verified 03/12/25 05:11 Iain) Sulfa (Sulfonamide AdvReac Unknown Other (See Verified 03/12/25 05:11 Antibiotics) Comment) General Stated Complaint: Dizzy/Sync ARCHIE: 3 Review of Systems Narrative: see HPI Exam Narrative Exam Narrative: General: Alert, well appearing, well nourished, in no acute distress. Head: Normocephalic, atraumatic Neck: Trachea midline, ?Neck supple. ENT: ?MMM.? No oropharygeal lesions or exudate. TM's clear. Cardiac: ?RRR, no murmurs appreciated Resp: No respiratory distress. CTAB. Abd: ?Soft, non-distended, nontender : ?No suprapubic tenderness. No CVA tenderness. Extremities: ?No deformities.? No peripheral edema. Neuro: ? GCS 15.? PERRL.? EOMI.? Fluent speech, no dysarthria. Visual ryder intact to confrontation. Motor- 5/5 strength symmetric bilateral upper and lower extremities including shoulder abductors/adductors, elbow flexors/extensors, wrist flexors/extensors, finger abductors/adductors, hipflexors/extensors, knee flexors/extensors, ankle dorsiflexors and planter flexors. Sensation- ?Intact to light touch and symmetric multiple dermatomes including upper and lower extremities Coordination- No dysmetria on finger to nose Reflexes- 1/4 achilles & patellar, no clonus Gait/station: ?Normal stance.? No truncal ataxia. Steady gait with equal normal steps CRANIAL NERVES: II: Pupils equal and reactive, III, IV, : EOM intact, no gaze preference or deviation, no nystagmus. V: normal sensation in V1, V2, and V3 segments bilaterally VII: no asymmetry, no nasolabial fold flattening VIII: normal hearing to speech IX, X: normal palatal elevation, no uvular deviation XI: 5/5 head turn and 5/5 shoulder shrug bilaterally XII: midline tongue protrusion NIHSS: 0 [place]-Hallpike: Negative on left. Reproduced symptoms on right, however no evident nystagmus. Course Vital Signs Vital signs: Vital Signs Temperature 36.2 C L 03/12/25 05:03 Pulse 82 03/12/25 05:03 Respiratory Rate 16 03/12/25 05:03 Pulse Oximetry 96 03/12/25 05:03 Temperature 36.2 C L 03/12/25 05:03 Temperature Source Tympanic 03/12/25 05:03 Pulse 82 03/12/25 05:03 Respiratory Rate 18 03/12/25 05:08 Respiratory Effort Normal, Non-Labored 03/12/25 05:08 Pulse Oximetry 96 03/12/25 05:03 Oxygen Delivery Method Room Air 03/12/25 05:03 Oxygen Flow Rate 0 03/12/25 05:03 Pain Level 0 03/12/25 05:03 Medical Decision Making 70yo F with HTN, hypothyroid, schizophrenia, presenting with acute vertigo onset at [id number] this morning. Hypertensive on arrival, vital signs otherwise reassuring. Non-focal neuro exam, NIHSS 0, reproducible symptoms with Silvina-Hallpike on right however no evident nystagmus with this. Concern for central vertigo/CVA/vertebral artery dissection vs peripheral vertigo. No tinnitus/hearing changes to suggest Meniere's or labyrinthitis. Will send emergently to CT. No contraindications to TPA and is within window however given overall presentation, severity of symptoms, NIHSS 0, would be hesistant to administer at this time. ED course: -EKG SR, appropriate intervals, no ST segment or T wave changes to suggest occluisve DC -Fingerstick blood glucose 80's -CT head independently reviewed; no clear bleed on my view. Radiology read with no acute findings on CT/CTA; no ICH or large vessel occlusion. -Labs reviewed as below, CBC reassuring with no leukocytosis or anemia, CMP with no actionable abnormalities, Mg normal, VBG reassuring, TSH normal, trop WNL, coags normal, UA not suggestive of infection -Dr. Javier from [facility] evaluated patient; agree concern for peripheral vertigo vs posterior CVA. Recommended starting plavix 75mg given pt with ASA allergy, admission for stroke workup/MRI/echo, and ENT followup upon discharge if MRI negative; did not advise tPA. -No orthostatic hypotension. Ambulated in department steadily with minor symptoms, reports her vertigo is better than when she came to the ED. I discussed at length with Ms. Oliveros teleneurology's recommendations and the fact that we cannot say for sure whether or not she is having a stroke without an MRI. She does not want to stay in the hospital; states that she has dogs at home and that there is no one else who can care for them. Lives alone, cannot think of anyone she could call to watch them. I advised her strokes are very serious and her symptoms could become permanent, worsen, and result in permanent disability requiring fci care in a penitentiary, or . She verbalized understanding of these concerns but again affirmed that she wanted to leave against medical advice. I reviewed with her also that I am concerned about falls given her ongoing vertigo, especially as neurology recommended we start Plavix. She again voiced understanding of these concerns and states that she needs to take care of her dogs and that she is willing to undertake the personal risk associated with that. She demonstrates decision making capacity and I have no indication to hold her against her will. I encouraged her to try to find someone (perhaps a neighbor?) who might be able to help her with her dogs and she thinks she may have a few people she can call. Her plan is to go home and make some phone calls to try to identify a person who could help, and to return to the emergency department when she is able. Will give her plavix in the meantime. Her blood pressure remains quite high here in the ED (increased to 206/79 after AMA discussion, suspect situational). She is not willing to wait in the emergency department for treatment here or BP monitoring and states she will take her morning BP meds at home. I am somewhat hesitant to prescribe plavix given her fall risk and hypertension (though I suspect this will improve once she is back home), however must weigh the risk that her symptoms today represent a CVA and neurology did advise starting plavix based on this. Risks/benefits were discussed with patient and we engaged in shared decision making; she elected to start plavix which was prescribed. Will also prescribe meclizine as she tolerated this here and it may have helped her symptoms. Left AMA. Discharge instructions and return precautions were reviewed with patient who verbalized understanding. All questions were answered. Lab Data Lab results reviewed: Yes I reviewed the patient's lab results. Labs: Laboratory Tests Range/Units 03/12/25 03/12/25 03/12/25 05:30 05:55 06:35 WBC (4.4-10.8) 10^3/uL 7.19 RBC (3.93-5.22) 10^6/uL 4.06 Hgb (11.2-15.7) g/dL 12.7 Hct (36.0-46.0) % 38.0 MCV (80-95) fL 94 MCH (27.0-33.0) pg 31.3 MCHC (32.0-36.0) % 33.4 RDW (11.7-14.6) % 13.2 Plt Count (130-400) 10^3/uL 192 MPV (8.0-11.0) fL 9.3 Immature Gran % % 0.4 Neutrophils % % 56.3 Lymphocytes % % 26.7 Monocytes % % 11.0 Eosinophils % % 4.9 Basophils % % 0.7 Nucleated RBC % (0.0-0.3) % 0.0 Absolute Neutrophils (1.2-6.7) 10^3/uL 4.05 Absolute Lymphocytes (1.2-3.4) 10^3/uL 1.92 Absolute Monocytes (0.1-0.8) 10^3/uL 0.79 Absolute Eosinophils (0.0-0.7) 10^3/uL 0.35 Absolute Basophils (0.0-0.2) 10^3/uL 0.05 PT (9.1-11.1) sec 9.9 INR (0.9-1.1) 1.0 APTT (20.6-30.2) sec 25.6 VBG pH (7.31-7.41) 7.39 VBG pCO2 (41-51) mmHg 51 VBG pO2 mmHg 42 VBG HCO3 (23-28) mmol/L 31 H VBG Total CO2 (24-29) mmol/L 28 VBG O2 Saturation % 75 VBG Base Excess (-2-3) mmol/L 6 H Sodium (136-145) mmol/L 139 Potassium (3.5-5.1) mmol/L 3.7 Chloride (98-107) mmol/L 102 Carbon Dioxide (21.0-32.0) mmol/L 33.6 H Anion Gap (3-11) mmol/L 3.4 BUN (7-18) mg/dL 22 H Creatinine (0.55-1.02) mg/dL 0.8 Est GFR (CKD-EPI 2020) (mL/min/1.73m2) 78.24 Glucose (74-106) mg/dL 114 H Calcium (8.5-10.1) mg/dL 9.6 Magnesium (1.8-2.4) mg/dL 1.9 Total Bilirubin (0.2-1.0) mg/dL 0.5 AST (15-37) U/L 13 L ALT (14-59) U/L 25 Alkaline Phosphatase (46-116) U/L 95 Troponin I (<or=51) ng/L 5 5 Total Protein (6.4-8.2) g/dL 7.2 Albumin (3.4-5.0) g/dL 3.5 TSH (0.36-3.74) uIU/mL 2.05 Urine Color (Yellow) Yellow Urine Clarity (Clear) Clear Urine pH (5-8) 7.5 Ur Specific [place]iman (1.005-1.025) 1.015 Urine Protein (Neg-Trace) mg/dL Negative Urine Ketones (Negative) mg/dL Negative Urine Blood (Negative) Negative Urine Nitrite (Negative) Negative Urine Bilirubin (Negative) Negative Urine Urobilinogen (Up to 0.2) mg/dL 0.2 Ur Leukocyte Esterase (Negative) Trace H Urine RBC (0-2) HPF Negative Urine WBC (0-5) HPF 0-2 Ur Epithelial Cells (Negative) HPF Rare Urine Crystals (Negative) HPF Few Amorphous Urine Bacteria (Negative) HPF Rare Urine Casts (Negative) LPF Negative Urine Mucus (Negative) Negative Ur Culture Indicated? No Urine Glucose (Negative) mg/dL Negative Critical Care Time Critical Care Time Critical Care Time: Yes Total Critical Care Time: 34 Attestation: Due to a high probability of clinically significant, life threatening deterioration, the patient required my highest level of preparedness to intervene emergently and I personally spent this critical care time directly and personally managing the patient. This critical care time included obtaining a history; examining the patient; pulse oximetry; ordering and review of studies; arranging urgent treatment with development of a management plan; evaluation of patient's response to treatment; frequent reassessment; and, discussions with other providers. This critical care time was performed to assess and manage the high probability of imminent, life-threatening deterioration that could result in multi-organ failure. It was exclusive of separately billable procedures and treating other patients? PFSH All Active Problems (Updated 03/12/25 @ 07:23 by Felipa Chilel MD) Vertigo (Acute) On valproate therapy (Acute) Essential hypertension (Acute) Phlegm in throat (Acute) Vaginal cyst (Acute) Nail dystrophy (Acute) Elevated blood pressure reading (Acute) Osteopenia (Acute 05/22/15) bone density scan 2014 Migraine (Acute) Hypothyroidism (Acute 10/28/11) Bipolar I disorder (Acute) Anemia (Acute) Family history of GI malignancy (Acute) sister of colon cancer Schizophrenia (Acute) Medical History Gastroesophageal reflux disease Family History Mother , 92 Essential hypertension Heart disease Hyperlipidemia Father , 60 Prostate cancer Sister , 60 No problems noted. Sister , 60 Colon cancer Brother Essential hypertension Brother No problems noted. Maternal Grandfather , 72 Heart disease Cancer Paternal Grandfather , 60 Heart disease Cancer Maternal Grandmother , 86 Heart disease Colon cancer Paternal Grandmother , 84 Heart disease Cancer FAMILY HISTORY Neoplasm CERVICAL Sister No problems noted. Sister No problems noted. Sister No problems noted. Social History (Updated 04/07/24 @ 10:20 by Chaparrita Fitch) Smoking/Tobacco Use Status: Never Second Hand Exposure: Yes Smoking risk assessment performed?: Yes Alcohol Intake: never Drug use: Never Substance use type: does not use Counseling given: No Adopted: No Caregiver/Support person: No Household members: none Housing: house Number of Children: 0 number of grandchildren: 0 Communication Needs: None Do you need help understanding health information?: Never Pets and animals: Yes Pets and animals: dog(s) Sexually active: No Do you think of yourself as: straight/heterosexual Current gender identity: female What is your relationship status?: How often do you talk on the phone with friends or family?: three or more times per week How often do you get together with friends or relatives?: once per week How often do you attend oriental orthodox or yazidism services?: 1-3 times per year Do you belong to any clubs or organized social groups?: yes Panel score (0-1 are the most socially isolated patients): 2 What type of physical activity do you participate in: weight lifting Duration: 45-60 minutes/day Frequency: 1-2 times per week Katelin/Baptist: Sabianism Special katelin needs: No Seatbelt use: always Helmet use: No Drive intox or ride w/intox food service driver: No Firearms in home: No Do you feel safe at home: Yes Do you feel safe in your relationship?: Yes Victim of physical abuse: No Victim of emotional abuse: No Victim of sexual abuse: No
[2025-03-12 05:46] LABS: Abs Immature Grans 0.03 10^3/uL (0.0-0.06); HCT 38.0 % (36.0-46.0); HGB 12.7 g/dL (11.2-15.7); Immature Grans % 0.4 %; MCH 31.3 pg (27.0-33.0); MCHC 33.4 % (32.0-36.0); MCV 94 fL (80-95); MPV 9.3 fL (8.0-11.0); Platelet Count 192 10^3/uL (130-400); RBC 4.06 10^6/uL (3.93-5.22); RDW 13.2 % (11.7-14.6); RDW-SD 45.7 fL; WBC 7.19 10^3/uL (4.4-10.8)
[2025-03-12] MEDS: Meclizine 25 MG TAB PO (05:46)
[2025-03-12 05:47] LABS: BE (Venous) 6 mmol/L (-2-3); HCO3 (Venous) 31 mmol/L (23-28); O2 Sat (Venous) 75 %; TCO2 (Venous) 28 mmol/L (24-29); pCO2 (Venous) 51 mmHg (41-51); pO2 (Venous) 42 mmHg
[2025-03-12 06:05] LABS: Glucose Negative (Negative)
[2025-03-12 06:16] LABS: RBC Negative HPF (0-2); WBC 0-2 HPF (0-5)
[2025-03-12 06:17] LABS: C & S Indicated? No
--- NOTE | 2025-03-12 06:19 | DI.CT_ITS ---
Exam(s) CT BRAIN NECK CTA EXAM: CT BRAIN NECK CTA CLINICAL HISTORY: vertigo. TECHNIQUE: Imaging Protocol: Axial CT angiography was performed with multi- slice acquisition and multi-planar and/or 3D reconstructions. CONTRAST MATERIAL: Intravenous: Omnipaque 350 Contrast volume:structured data in ml COMPARISON: No exams were available for comparison FINDINGS: CTA Neck W: Aortic arch anatomy: The aortic arch anatomy is conventional and there is no significant stenosis at the origin of the great vessels off of the aortic arch. No intimal flap evident. Anterior circulation: Both common carotid arteries ascend with normal luminal diameters. At the level the carotid bulbs and proximal internal carotid arteries there is minimal plaque without hemodynamically significant stenosis evident. Posterior circulation: Both vertebral arteries originate in conventional fashion off of the subclavian arteries and there is no obvious stenosis at the origin of the vertebral arteries. Both vertebral arteries exhibit equal normal luminal diameters within the foramen transversarium. No thrombosis nor dissection. Both vertebral arteries contribute to the formation of the basilar artery at the skull base. CTA Brain W: Anterior circulation: Both internal carotid arteries are patent in the skull base-carotid canals. There is some mural calcification of these vessels within the cavernous sinuses and suspect mild stenosis bilaterally at these levels. The supraclinoid aspects of the ICAs are patent. Both A1 segments are patent as are the anterior cerebral arteries and there is no evidence of aneurysm at the level of the anterior communicating artery. Both middle cerebral arteries are patent with no evidence of significant stenosis nor intraluminal thrombus. There also no aneurysms of these vessels. Posterior circulation: The basilar artery ascends in the midline. Distally it gives off patent bilateral superior cerebellar arteries. Above this level the basilar artery terminates as bilateral posterior cerebral arteries. The right posterior cerebral artery receives significant flow from posterior communicating artery on the right side of the [id number]-lj-Nexqcz. There is no left-sided posterior communicating artery. The left P1 segment is nicely patent but there is a tight focal 4 mm stenosis in proximal left P2 segment (90 percent stenosis). There is no evidence of aneurysm at the tip of the basilar artery nor elsewhere in the vnyjyk-mz-Lubbic. CT BRAIN: There is no evidence of intracranial hemorrhage, mass effect, or shift of midline structures. There are no extra-axial fluid collections. Ventricles are not enlarged or shifted. There are no ring enhancing lesions in the brain and no abnormal meningeal enhancement. IMPRESSION: 1. Patent carotid arteries in the neck. No hemodynamically significant stenosis. No dissection. 2. Patent vertebral arteries. No intraluminal thrombus nor dissection both vertebral arteries exhibit equal a normal luminal diameters in both contribute to the formation of the basilar artery at the skull base. 3. There is a tight 90 percent focal stenosis in the left posterior cerebral artery P2 segment 4. No evidence of aneurysms or vascular malformations. 5. There are no ring enhancing lesions in the brain there is no abnormal meningeal enhancement. No evidence of obvious acute infarct. Follow-up MRI recommended The preliminary virtual Radiology report was reviewed Final report and recommendation called by myself to ER physician 03/12/2025 at 4:20 p.m. RADIATION DOSE DELIVERED: 2,001.59mGy.cm Total DLP DATA REPOSITORY: All CT scans at this facility are submitted to the National Radiology Data Registry (NRDR) Dose Index Registry (DIR) with the [employer] (A[employer]). RADIATION OPTIMIZATION: All CT scans at this facility use at least one of these dose optimization techniques: automated exposure control; mA and/or kV adjustment per patient size (includes targeted exams where dose is matched to clinical indication); or iterative reconstruction.
--- NOTE | 2025-03-12 06:20 | DI.VRAD_ITS ---
PROCEDURE INFORMATION: Exam: CTA Head Without And With Contrast, Arteriography Exam date and time: 03/12/2025 5:35 AM Age: 70 years old Clinical indication: Stroke-like symptoms; Other: Vertigo TECHNIQUE: Imaging protocol: Computed tomographic angiography of the head without and with contrast. Exam focused on the arteries. 3D rendering (Not supervised by radiologist): MIP and/or 3D reconstructed images were created by the technologist. Radiation optimization: All CT scans at this facility use at least one of these dose optimization techniques: automated exposure control; mA and/or kV adjustment per patient size (includes targeted exams where dose is matched to clinical indication); or iterative reconstruction. Contrast material: [id number]; Contrast volume: 70 ml; Contrast route: INTRAVENOUS (IV); Other technique: STROKE PROTOCOL was implemented. COMPARISON: No relevant prior studies available. FINDINGS: ANTERIOR CIRCULATION: Right internal carotid artery: Moderate calcified atherosclerosis causes moderate stenosis of the anterior genu of the cavernous ICA and the clinoid ICA. No occlusion. No aneurysm. Right middle cerebral artery: No occlusion or significant stenosis. No aneurysm. Right anterior cerebral artery: No occlusion or significant stenosis. No aneurysm. Left internal carotid artery: Moderate calcified atherosclerosis causes moderate stenosis of the anterior genu of the cavernous ICA and the clinoid ICA. No occlusion. No aneurysm. Left middle cerebral artery: No occlusion or significant stenosis. No aneurysm. Left anterior cerebral artery: No occlusion or significant stenosis. No aneurysm. POSTERIOR CIRCULATION: Right vertebral artery: No occlusion or significant stenosis. No aneurysm. Left vertebral artery: No occlusion or significant stenosis. No aneurysm. Basilar artery: No occlusion or significant stenosis. No aneurysm. Right posterior cerebral artery: No occlusion or significant stenosis. No aneurysm. Left posterior cerebral artery: Severe stenosis of the proximal left [employer] P2 segment. No occlusion. No aneurysm. HEAD: Brain: There is mild diffuse cerebral atrophy present, consistent with this patient's age. There is patchy low attenuation in the white matter of both cerebral hemispheres which is a nonspecific finding but most likely secondary to mild chronic microvascular ischemic disease. No evidence of acute ischemia. No hemorrhage. Cerebral ventricles: There is mild ex vacuo enlargement of the lateral and third ventricles secondary to cerebral atrophy. Bones: Unremarkable. No acute fracture. Paranasal sinuses: Mild mucosal thickening in the right maxillary sinus. No air-fluid levels. Mastoid air cells: Visualized mastoids are normal. No mastoid effusion. Auditory system: There is cerumen in the bilateral external auditory canals, [id number]. Soft tissues: There is scarring in the right superolateral head soft tissues. IMPRESSION: 1. No acute intracranial abnormality. No evidence of acute ischemia. 2. No large vessel occlusion. 3. 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 4. Non-acute findings are described above. ASSESSMENT: ASPECTS ([place] Stroke Program Early CT Score) is 10. PROCEDURE INFORMATION: Exam: CTA Neck With Contrast Exam date and time: 03/12/2025 5:35 AM Age: 70 years old Clinical indication: Stroke-like symptoms; Other: Vertigo TECHNIQUE: Imaging protocol: Computed tomographic angiography of the neck with contrast. Exam focused on the cervical segments of the vasculature. 3D rendering (Not supervised by radiologist): MIP and/or 3D reconstructed images were created by the technologist. Radiation optimization: All CT scans at this facility use at least one of these dose optimization techniques: automated exposure control; mA and/or kV adjustment per patient size (includes targeted exams where dose is matched to clinical indication); or iterative reconstruction. Contrast material: [id number]; Contrast volume: 70 ml; Contrast route: INTRAVENOUS (IV); COMPARISON: No relevant prior studies available. FINDINGS: Right common carotid artery: No stenosis. No dissection or occlusion. Right internal carotid artery: No stenosis of the extracranial segment. No dissection or occlusion. Right external carotid artery: No occlusion or stenosis of the origin. Left common carotid artery: No stenosis. No dissection or occlusion. Left internal carotid artery: No stenosis of the extracranial segment. No dissection or occlusion. Left external carotid artery: No occlusion or stenosis of the origin. Right vertebral artery: No stenosis. No dissection or occlusion. Left vertebral artery: No stenosis. No dissection or occlusion. Soft tissues: Normal. No significant soft tissue swelling. Bones/joints: No acute fracture. There is a nonspecific reversal of the normal cervical lordosis. Multilevel chronic degenerative changes of the cervical and upper thoracic spine. IMPRESSION: No stenosis or occlusion. REFERENCES: NASCET CRITERIA. The degree of stenosis in the cervical segment of the internal carotid artery is based on NASCET criteria. Normal is no stenosis. Mild is less than 50% stenosis. Moderate is 50-69% stenosis. Severe is 70% to 99% stenosis. Total occlusion is no detectable patent lumen. Dictated and Authenticated by: Evin Medrano MD. Orderin Ranjana Leo MD
[2025-03-12 06:22] LABS: ALT 25 U/L (14-59); AST 13 U/L (15-37); Albumin 3.5 g/dL (3.4-5.0); Alkaline Phosphatase 95 U/L (46-116); Anion Gap 3.4 mmol/L (3-11); BUN 22 mg/dL (7-18); Bilirubin, Total 0.5 mg/dL (0.2-1.0); CO2 33.6 mmol/L (21.0-32.0); Calcium 9.6 mg/dL (8.5-10.1); Chloride 102 mmol/L (98-107); Estimated GFR 78.24 (mL/min/1.73m2); Glucose 114 mg/dL (74-106); Magnesium 1.9 mg/dL (1.8-2.4); Potassium 3.7 mmol/L (3.5-5.1); Sodium 139 mmol/L (136-145); TSH 2.05 uIU/mL (0.36-3.74); Total Protein 7.2 g/dL (6.4-8.2); Troponin I 5 ng/L (<or=51)
[2025-03-12] MEDS: Omnipaque 350 MG/ML 100 ML BTL IJ (06:22)
[2025-03-12] MEDS: Normal Saline - Diluent 50 ML VIAL IJ (06:22)
[2025-03-12] MEDS: Normal Saline Flush 10 ML SYR IVP (06:23)
[2025-03-12 06:59] LABS: Troponin I 5 ng/L (<or=51)
[2025-03-12 07:09] LABS: INR 1.0 (0.9-1.1); PTT Activated 25.6 sec (20.6-30.2); Prothrombin Time 9.9 sec (9.1-11.1)
[2025-03-12] MEDS: Clopidogrel 75 MG TAB PO (07:42)
[2025-03-12] MEDS: Clopidogrel 75 MG TAB 150 MG PO (07:43)
--- NOTE | 2025-03-12 07:48 | NUR.NOTE ---
Nursing Note: when walking around unit with this RN PT says I am not dizzy walking only when I bend over
== END 2025-03-12 08:14 | disposition left against medical advice (07) ==
PROVIDERS: Emergency Provider Student in an Organized Health Care Education/Training Program; PCP Nurse Practitioner Family
DX: R42 Dizziness and giddiness (principal); I10 Essential (primary) hypertension; R11.0 Nausea; Z53.29 Procedure and treatment not carried out because of patient's decision for other reasons
CPT/HCPCS: 36415; 36416; 82962; 99291; 70496; 70498; 80053; 82805; 93005; 81003; 81015; 83735; 84443; 84484; 85025; 85610; 85730; 93010; J3490